=== PATIENT | male | born 1940 | race Caucasian/White ===

== ENCOUNTER 2022-05-15 09:36 | Outpatient (CLI) | payer MEDICARE, SELFPAY ==
--- NOTE | ~2022-05-15 | US_ITS ---
EXAMINATION: US carotid duplex BI DATE: 05/15/2022 10:35 INDICATION: Carotid stenosis TECHNIQUE: Grayscale, color Doppler, and pulsed Doppler images of the cervical carotid arteries were obtained. The degree of vessel stenosis is placed in one of the following categories: normal, <50%, 5 0-69%, >=70% but less than near-occlusion, near-occlusion, or total occlusion. Note that percent sten osis relative to normal distal artery lumen diameter is indirectly measured from velocity measurement s as described by Farrukh, et al. Radiology 2003; [id number]:340-346. Notes: Normal: Peak systolic velocity <125 centimeters/sec and no plaque <50%. Peak systolic velocity <125 ( EDV <40; ICA/CCA PSV ratio <2.0; used these factors only a tandem lesions or low cardiac output or co ntralateral disease) 50-69 %: PSV 125-230 (EDV 40-100; ratio 2-4) >= 70% but less than near occlusion: PSV greater than 230 (EDV > 100; ratio> 4.0) Near Occlusion: PSV that is variable; markedly narrowed lumen Occlusion: Absent flow on color/spectral Doppler and no lumen on mcnair scale. COMPARISON: None. FINDINGS: RIGHT: The right common carotid artery (CCA) peak systolic velocity (PSV) is 106 cm/s. The right internal ca rotid artery (ICA) PSV is 52 cm/s. The right ICA end-diastolic velocity (EDV) is 10 cm/s. The right I CA/CCA PSV ratio is 0.5. The external carotid artery (ECA) PSV is 86 cm/s. There is antegrade flow in the right vertebral artery. LEFT: The left CCA PSV is 116 cm/s. The left ICA PSV is 50 cm/s. The left ICA EDV is 6.0 cm/s. The left ICA /CCA PSV ratio is 0.8. The ECA PSV is 111 cm/s. There is antegrade flow in the left vertebral artery . IMPRESSION: 1. Less than 50% stenosis in the right internal carotid artery by sonographic criteria. 2. Less than 50% stenosis in the left internal carotid artery by sonographic criteria. Reviewed, dictated and finalized at location A. IMPRESSION: 1. Less than 50% stenosis in the right internal carotid artery by sonographic jerica walker. 2. Less than 50% stenosis in the left internal carotid artery by sonographic darrian giraldo.
== END 2022-05-15 09:37 | disposition home or self-care (01) ==
PROVIDERS: PCP Internal Medicine; Visit Provider Internal Medicine Cardiovascular Disease
DX: I65.23 Occlusion and stenosis of bilateral carotid arteries (principal)
CPT/HCPCS: 93880